=== PATIENT | male | born 1985 | race Caucasian/White ===

== ENCOUNTER 2023-07-14 09:02 | Outpatient (CLI) | payer OTHER, SELFPAY ==
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
== END 2023-07-14 09:03 | disposition home or self-care (01) ==
PROVIDERS: Visit Provider Nurse Practitioner Family
DX: M47.812 Spondylosis without myelopathy or radiculopathy, cervical region (principal); M50.322 Other cervical disc degeneration at C5-C6 level
CPT/HCPCS: 72050

== ENCOUNTER → 2023-10-06 10:46 | Outpatient (BNVA) | payer OTHER, SELFPAY | PROVIDERS: Visit Provider Otolaryngology | DX: J34.89 Other specified disorders of nose and nasal sinuses (principal); J34.3 Hypertrophy of nasal turbinates; J34.2 Deviated nasal septum; R04.0 Epistaxis | CPT/HCPCS: 99203; 99204 ==

== ENCOUNTER 2024-06-15 11:32 | Emergency (ER) | payer OTHER, SELFPAY ==
[2024-06-15 11:32] VITALS: BP 151/86; PULSE 82; RESP 18; TEMP 36.8; O2SAT 99; BMI 34.2
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
[2024-06-15] MEDS: iohexol 350 mg/mL 500 mL Btl (per mL) IV (11:57)
[2024-06-15 12:07] VITALS: PULSE 77; O2SAT 100
[2024-06-15 12:37] VITALS: PULSE 72; O2SAT 96
[2024-06-15 13:15] VITALS: BP 174/84; PULSE 65; O2SAT 100
== END 2024-06-15 13:16 | disposition home or self-care (01) ==
PROVIDERS: Emergency Provider Emergency Medicine
DX: S20.219A Contusion of unspecified front wall of thorax, initial encounter (principal); S09.8XXA Other specified injuries of head, initial encounter; V89.2XXA Person injured in unspecified motor-vehicle accident, traffic, initial encounter
CPT/HCPCS: 70450; 71260; 72125; 74177; 99285

== ENCOUNTER 2024-08-09 10:07 | Outpatient (RCR) | payer OTHER, SELFPAY | END 2024-08-29 23:59 | disposition home or self-care (01) | LOC: SPT 10:07 | PROVIDERS: Visit Provider Family Medicine | DX: M54.59 Other low back pain (principal) | CPT/HCPCS: 97110; 97161 ==

== ENCOUNTER 2024-08-30 05:00 | Outpatient (RCR) | payer OTHER, SELFPAY | END 2024-09-28 23:59 | disposition home or self-care (01) | LOC: SPT 05:00 | PROVIDERS: Visit Provider Family Medicine | DX: M54.59 Other low back pain (principal) | CPT/HCPCS: 97110 ==

== ENCOUNTER 2024-09-29 05:00 | Outpatient (RCR) | payer OTHER, SELFPAY | END 2024-10-25 09:59 | disposition home or self-care (01) | LOC: SPT 05:00 | PROVIDERS: Visit Provider Family Medicine | DX: M54.59 Other low back pain (principal) | CPT/HCPCS: 97110 ==

== ENCOUNTER → 2025-03-02 10:04 | Outpatient (BNVA) | payer OTHER, SELFPAY | PROVIDERS: Visit Provider Student in an Organized Health Care Education/Training Program | DX: R10.9 Unspecified abdominal pain (principal) | CPT/HCPCS: 99204 ==

== ENCOUNTER 2025-03-09 11:19 | Day surgery (SDC) | payer OTHER, SELFPAY ==
--- NOTE | 2025-03-09 11:37 | W.PM.OPSUD ---
Surgery/Procedure H&P Update DATE OF PROCEDURE: March 09, 2025 DATE H&P PERFORMED: 03/02/25 H&P UPDATE INFORMATION: I have reviewed H&P completed within last 30 days, I have examined patient prior to procedure, No changes to prior documentation and Risks and benefits of the procedure reviewed PLANNED PROCEDURE: Operation Date: 03/09/25 12:45 Proposed Procedures p EGD EGD with Biopsy [id number] Z12.11 K21.9(Not Applicable) - Gilberto Carpio MD s Colonoscopy(Not Applicable) - Gilberto Carpio MD
[2025-03-09 11:40] VITALS: BP 134/83; PULSE 75; RESP 18; TEMP 36.5; O2SAT 97; BMI 32.1
[2025-03-09 12:39] VITALS: BP 99/61; PULSE 68; RESP 10; TEMP 36.2; O2SAT 96
--- NOTE | 2025-03-09 12:42 | ANE.PACU2 ---
Inpatient post-anesthesia follow up: Airway intact: Yes Vital signs: Temperature 97.2 F Pulse Rate 63 Respiratory Rate 16 Blood Pressure 104/73 Pulse Oximetry 97 Oxygen Delivery Me thod Room Air Oxygen Flow Rate Fraction of Inspir ed Oxygen Hydration adequate: Yes Nausea and vomiting: No Pain level: 1 Mental status: Baseline
[2025-03-09 12:51] VITALS: BP 103/61; PULSE 62; RESP 12; O2SAT 93
[2025-03-09 13:16] VITALS: BP 104/73; PULSE 63; RESP 16; O2SAT 97
== END 2025-03-09 13:30 | disposition home or self-care (01) ==
PROVIDERS: Visit Provider Student in an Organized Health Care Education/Training Program
PROC: 0DJ08ZZ Inspection of Upper Intestinal Tract, Via Natural or Artificial Opening Endoscopic (ICD-10-PCS; principal; 2025-03-09 12:45)
PROC: 0DJD8ZZ Inspection of Lower Intestinal Tract, Via Natural or Artificial Opening Endoscopic (ICD-10-PCS; CPT 45378; 2025-03-09 12:45)
DX: Z12.11 Encounter for screening for malignant neoplasm of colon (principal); R12 Heartburn; K62.1 Rectal polyp; K29.30 Chronic superficial gastritis without bleeding; A04.8 Other specified bacterial intestinal infections; K29.40 Chronic atrophic gastritis without bleeding; F43.10 Post-traumatic stress disorder, unspecified; Z87.891 Personal history of nicotine dependence
CPT/HCPCS: 43239; 45380; 88305; 88342; J2250; J2704; J3010; J7030

== ENCOUNTER → 2025-03-30 08:02 | Outpatient (BNVA) | payer OTHER, SELFPAY | PROVIDERS: Visit Provider Student in an Organized Health Care Education/Training Program | DX: Z09 Encounter for follow-up examination after completed treatment for conditions other than malignant neoplasm (principal) | CPT/HCPCS: 99213 ==